=== PATIENT | male | born 1955 | race Caucasian/White ===

== ENCOUNTER 2019-11-03 11:05 | Emergency (ER) | payer OTHER ==
[~2019-11-03] VITALS: Ht 165.1 cm; Wt 77.1 kg
[2019-11-03 11:16] VITALS: BP 141/70
--- NOTE | 2019-11-03 12:10 | NUR ---
Patient eloped from facility. ER MD notified.
== END 2019-11-03 12:10 | disposition left against medical advice (07) ==
LOC: ER 11:09
DX: Z53.21 Procedure and treatment not carried out due to patient leaving prior to being seen by health care provider (principal); I10 Essential (primary) hypertension; E11.9 Type 2 diabetes mellitus without complications